=== PATIENT | male | born 1995 | race Hispanic/Latino ===

== ENCOUNTER 2018-04-26 14:47 | Inpatient (IN) | payer MEDICAID ==
[2018-04-26 14:48] VITALS: BMI 23.6
[2018-04-26 16:14] LABS: BASO % 0.6 % (0.0-2.0); EOS # 0.8 K/uL (0.0-0.7); EOS % 9.6 % (0.0-4.0); HEMOGLOBIN 14.8 g/dL (12.0-18.0); LYMPH # 2.6 K/uL (1.0-4.3); LYMPH % 32.2 % (20.0-40.0); MEAN CELL VOLUME 92.4 fL (80.0-94.0); MEAN CORPUSCULAR HEMOGLOBIN 31.4 pg (27.0-31.0); MEAN CORPUSCULAR HGB CONC 33.9 g/dL (33.0-37.0); MEAN PLATELET VOLUME 8.1 fL (7.2-11.7); MONO # 0.7 K/uL (0.0-0.8); MONO % 8.5 % (0.0-10.0); NEUT % 49.1 % (50.0-75.0); NRBC % 0.1 % (0.0-2.0); RBC 4.71 Mil/uL (4.40-5.90); RED CELL DISTRIBUTION WIDTH 13.7 % (11.5-14.5); WHITE BLOOD COUNT 8.1 K/uL (4.8-10.8)
--- NOTE | 2018-04-26 16:26 | RAD ---
Date of service: 04/26/2018 PROCEDURE: Right Thumb radiographs. HISTORY: r/o osteomyelitis, fx COMPARISON: None. TECHNIQUE: AP radiograph of the right hand, as well as spot oblique and lateral images of thumb were obtained. FINDINGS: RIGHT THUMB: Normal right thumb, without fracture or focal lesion. Remainder of the right hand (as seen on the AP view) grossly unremarkable. JOINTS: Normal. SOFT TISSUES: Soft tissue swelling. No radiographic manifestations of acute osteomyelitis. Ulcer identified adjacent to the distal tuft. No visulaized radiopaque/visualized foreign body. OTHER FINDINGS: None. IMPRESSION: Soft tissue swelling without acute articular or osseous abnormality.
[2018-04-26 16:29] LABS: ALB/GLOB RATIO 1.4 (1.0-2.1); ALBUMIN 4.3 g/dL (3.5-5.0); ALT/SGPT 16 U/L (21-72); AST/SGOT 19 U/L (17-59); BLOOD UREA NITROGEN 14 mg/dL (9-20); CALCIUM 9.3 mg/dl (8.6-10.4); GFR NON-AFRICAN AMERICAN > 60
[2018-04-26 16:31] LABS: INR 1.2; PROTHROMBIN TIME 13.5 SECONDS (9.7-12.2)
[2018-04-26] MEDS ORDERED: Clindamycin 300 MG in Sodium Chloride 0.9% 50 ML IVPB STA (16:36)
--- NOTE | 2018-04-26 16:48 | C.PDOC ---
History Of Present Illness 22 y/o male with no significant PMH presents to the ED c/o worsening right thumb pain and swelling x 6 days. Pt originally injured thumb by slamming it in a truck door on 04/21. Pt was seen at [facility] on 04/23 for the same complaint, d iagnosed with right thumb cellulitis with abscess, I&D'd at bedside and admitted for IV antibiotics and wound care. Pt left AMA after staying one night, states that he was "seen by too many doctors". He is here today stating that the right thumb redness and swelling is worse, with increased purulent drainage from site of abscess. He has been using betadine soaks at home without relief. Pt took a P ercocet at approx 11am for pain. Denies IV drug use. Denies fevers, chills, wrist pain, weakness, numbness, paresthesias, headache, N/V, abdominal pain, lightheadedness, SOB, chest pain, palpitations. Chief Complaint (Nursing): Finger,Hand,&Wrist History Per: Patient History/Exam Limitations: no limitations Onset/Duration Of Symptoms: Days Past Medical History Reviewed: Historical Data, Nursing Documentation, Vital Signs Vital Signs: Last Vital Signs Temp 98.5 F 04/26/18 14:51 Pulse 73 04/26/18 14:51 Resp 18 04/26/18 14:51 BP 145/76 04/26/18 14:51 Pulse Ox 97 04/26/18 14:51 - Medical History PMH: Denies: HIV, Chronic Kidney Disease Family History: States: Unknown Family Hx - Social History Hx Alcohol Use: Yes (3x /week) Hx Substance Use: No Review Of Systems Except As Marked, All Systems Reviewed And Found Negative. Constitutional: Negative for: Fever, Chills Eyes: Negative for: Vision Change ENT: Negative for: Nose Congestion, Mouth Swelling, Throat Pain, Throat Swelling Cardiovascular: Negative for: Chest Pain, Palpitations, Light Headedness Respiratory: Negative for: Cough, Shortness of Breath Gastrointestinal: Negative for: Nausea, Vomiting, Abdominal Pain, Diarrhea Musculoskeletal: Positive for: Hand Pain (right thumb). Negative for: Neck Pain, Shoulder Pain, Arm Pain, Back Pain, Leg Pain, Foot Pain Skin: Positive for: Other (redness, swelling, draining wound right thumb) Neurological: Negative for: Weakness, Numbness, Altered Mental Status, Headache, Dizziness Physical Exam - Physical Exam Appears: Well, Non-toxic, No Acute Distress Skin: Warm, Dry, Other Head: Atraumatic, Normacephalic Eye(s): bilateral: Normal Inspection, PERRL, EOMI Nose: Normal Oral Mucosa: Moist Throat: Normal Neck: Normal, Normal ROM Lymphatic: Normal Exam Cardiovascular: Rhythm Regular Respiratory: Normal Breath Sounds Back: Normal Inspection, No Decreased ROM Extremity: No Normal ROM (decreased flexion and opposition to right thumb secondary to swelling and pain), Tenderness (entirety of right thumb), Capillary Refill (<2s), No Deformity, Swelling (right thumb, thenar eminence), Other (erythema right thumb, thenar eminence; 1cm open, bleeding, purulent draining incision volar aspect of right thumb) Extremity: Left: Atraumatic, Normal Color And Temperature, Normal ROM, Right: Limited ROM To Joint (thumb) Pulses: Left Radial: Normal, Right Radial: Normal Neurological/Psych: Oriented x3, Normal Speech, Normal Cognition, Normal Cranial Nerves, Normal Motor, Normal Sensation Gait: Steady ED Course And Treatment - Laboratory Results Result Diagrams: 04/26/18 16:05 04/26/18 16:05 O2 Sat by Pulse Oximetry: 97 Medical Decision Making Medical Decision Making: Initial Plan: --CBC, CMP --Blood Cultures --Wound Cultures --PT/PTT --Right hand XR --Call Dr. Luke Pt received tetanus during visit to [facility] CBC: wnl CMP: wnl PT/PTT: wnl Xray: soft tissue swelling; no acute fracture, FB, or signs of osteomyelitis - read by radiologist Spoke with Dr. Luke, who advised to admit the pt to hospitalist service for IV antibiotics and wound care. Instructed to order consult for him. He will send ophthalmology surgical technician to evaluate. Spoke with Dr. Lopez, who accepted the pt on to the hospitalist service for inpatient admission to regular bed. Spoke with Dr. Nice (Metrology Specialist), who saw and evaluated pt in fast track. Advised to give pt IV Clindamycin and regular diet. States she will do I&D of right thumb abscess at bedside. See consult note. Impression: Right thumb cellulitis with abscess Plan: --Admit to inpatient hospitalist service for IV antibiotics and wound care Disposition - Disposition Disposition: HOSPITALIZED Disposition Time: 17:24 Condition: STABLE - Clinical Impression Clinical Impression: Cellulitis, Abscess
[2018-04-26] MEDS ORDERED: Lidocaine/Epi 1% 1:100000 20 ML IJ STA (17:17)
--- NOTE | 2018-04-26 17:51 | CP.PCM.CON ---
History of Present Illness - History of Present Illness History of Present Illness: Hand surgery consult note for Dr. Luke Consulted for refractory right thumb abscess Pt is a 22M with right thumb pain, swelling, and purulent drainage. 6 days ago patient crushed right thumb in a truck door. At the time patient did not notice any skin breakdown or bleeding, and did not clean or dress the thumb but kept working. over three days thumb became more swollen, and he underwent a bedside incision and drainage at [facility] and was admitted for with antibiotics. the next day patient left AMA. Patient soaked finger at home with betadine and water, but swelling and pain in thumb and purulent drainage persisted, so patient came to [facility] ER today. patient denies any numbness, tingling, weakness, fevers, chills, or any other symptoms. Bedside incision and drainage were performed at bedside. PMH: denies PSH: incsino and drainage of right thumb, right inguinal hernia repair ALL: NKDA Social: past cigarette smoker, past drinker, past marijuana user (states he quit all substances 2 weeks ago), denies any IV drug use Review of Systems - Review of Systems All systems: reviewed and no additional remarkable complaints except (as per HPI) Past Patient History - Infectious Disease Hx of Infectious Diseases: None - Tetanus Immunizations Tetanus Immunization: Unknown - Past Medical History & Family History Past Medical History?: Yes Past Family History: Reviewed and not pertinent - Past Social History Smoking Status: Former Smoker Alcohol: Other (quit drinking 04/2018) Drugs: Other (smoking marijuana history quit 04/2018) Home Situation {Lives}: With Family - CARDIAC Hx Cardiac Disorders: No - PULMONARY Hx Respiratory Disorders: No - NEUROLOGICAL Hx Neurological Disorder: No - HEENT Hx HEENT Problems: No - RENAL Hx Chronic Kidney Disease: No - ENDOCRINE/METABOLIC Hx Endocrine Disorders: No - HEMATOLOGICAL/ONCOLOGICAL Hx Human Immunodeficiency Virus (HIV): No - INTEGUMENTARY Hx Dermatological Problems: No - MUSCULOSKELETAL/RHEUMATOLOGICAL Hx Musculoskeletal Disorders: No Hx Falls: No - GASTROINTESTINAL Hx Gastrointestinal Disorders: No - GENITOURINARY/GYNECOLOGICAL Hx Genitourinary Disorders: No - PSYCHIATRIC Hx Substance Use: No - SURGICAL HISTORY Hx Surgeries: Yes Hx Herniorrhaphy: Yes (right inguinal) Other/Comment: incision and drainage of right thumb x2 04/2018 - ANESTHESIA Hx Anesthesia: Yes Hx Anesthesia Reactions: No Meds Allergies/Adverse Reactions: Allergies Allergy/AdvReac Type Severity Reaction Status Date / Time No Known Allergies Allergy Unverified 03/29/18 02:33 - Medications Medications: Current Medications Clindamycin Phosphate 300 mg/ (Sodium Chloride) 52 mls @ 100 mls/hr IVPB Q6H ANNIE; Protocol Saccharomyces Boulardii (Florastor) 250 mg PO BID ANNIE Physical Exam - Constitutional Appears: Well, Non-toxic, No Acute Distress - Head Exam Head Exam: ATRAUMATIC, NORMOCEPHALIC - Eye Exam Eye Exam: Normal appearance. absent: Conjunctival injection, Scleral icterus - ENT Exam ENT Exam: Mucous Membranes Moist, Normal Oropharynx - Respiratory Exam Respiratory Exam: NORMAL BREATHING PATTERN. absent: Accessory Muscle Use, Respiratory Distress - Cardiovascular Exam Cardiovascular Exam: RRR - GI/Abdominal Exam GI & Abdominal Exam: Soft. absent: Distended, Tenderness - Extremities Exam Extremities exam: Positive for: pedal pulses present. Negative for: calf tenderness, pedal edema Additional comments: right distal thumb with swelling, erythema, small incision with expressible purulent drainage, light sensation intact, normal capillary refill, motor function intact - Neurological Exam Neurological exam: Alert, Oriented x3 - Psychiatric Exam Psychiatric exam: Normal Affect, Normal Mood - Skin Skin Exam: Dry, Warm Results - Vital Signs Recent Vital Signs: Last Vital Signs Temp 98.5 F 04/26/18 14:51 Pulse 73 04/26/18 14:51 Resp 18 04/26/18 14:51 BP 145/76 04/26/18 14:51 Pulse Ox 97 04/26/18 17:24 - Labs Result Diagrams: 04/26/18 16:05 04/26/18 16:05 Labs: Laboratory Results - last 24 hr 04/26/18 04/26/18 04/26/18 16:05 16:05 16:05 WBC 8.1 RBC 4.71 Hgb 14.8 Hct 43.5 MCV 92.4 MCH 31.4 H MCHC 33.9 RDW 13.7 Plt Count 278 MPV 8.1 Neut % (Auto) 49.1 L Lymph % (Auto) 32.2 [place] % (Auto) 8.5 Eos % (Auto) 9.6 H Baso % (Auto) 0.6 Neut # (Auto) 4.0 Lymph # (Auto) 2.6 [place] # (Auto) 0.7 Eos # (Auto) 0.8 H Baso # (Auto) 0.0 PT 13.5 H INR 1.2 APTT 36 H Sodium 142 Potassium 4.1 Chloride 103 Carbon Dioxide 26 Anion Gap 17 BUN 14 Creatinine 0.6 L Est GFR ( Amer) > 60 Est GFR (Non-Af Amer) > 60 Random Glucose 114 H Calcium 9.3 Total Bilirubin 0.4 AST 19 ALT 16 L Alkaline Phosphatase 90 Total Protein 7.4 Albumin 4.3 Globulin 3.1 Albumin/Globulin Ratio 1.4 - Imaging and Cardiology hand XR Status: Image reviewed by me Additional comment: no foreign object or fracture apparent Assessment & Plan - Assessment and Plan (Free Text) Assessment: 22M with persistent abscess of right thumb--prior cultures MSSA most sensitive to clindamycin Plan: incision and drainage performed at bedside in the ED with purulent fluid output, packed with iodoform gauze F/U wound culture admit for IV antibiotics--clindamycin until new wound culture results Daily dressing changes PRN pain medication Discussed with Dr. Marly Nice, PGY2 Incision and Drainage - Time Time Performed: 18:15 - Time Out Time Out: Side verified, Site verified, Patient ID confirmed, Sterile procedures obs. - Procedure Procedure-Incision & Drainage: incision and drainage of the right thumb abscess - Consent obtained Consent obtained: Written - Performed by Performed by: Mid-level Provider - Indications Indications: Cutaneous abscess - Contraindications Contraindications: None - Location Location: Right, Finger abscess (thumb), Skin abscess - Dimensions Dimensions Length cm: 1cm Dimensions width cm: 2cm - Anesthetic Technique Anesthetic Technique: Regional block - Anesthetic Anesthetic: Lidocaine 1% w/epi - Procedure Procedure: Usual prep and drape, cm incision (cruciate incision 2cm x 1cm) - Drained Drained: ml pus (1) - Post-procedure Post procedure: Neurovascular status norm - Complications Complications: None - Patient tolerated procedure Patient tolerated procedure: Well
[2018-04-26] MEDS: Saccharomyces Boulardi 250 mg Cap PO SCH (18:35)
--- NOTE | 2018-04-26 19:05 | CP.PCM.HP ---
<Jeane Calderon E - Last Filed: 04/26/18 19:25> History of Present Illness - History of Present Illness History of Present Illness: CC: Right thumb pain HPI ( As per EMR and patient) Patient is a 22 year old male with no past medical history, who was admitted to [facility] (04/23/18) for right thumb Cellulitis post trauma. Patient had an injury to his right thumb approximately a week after he mistakenly slammed his right thumb in a truck door at work. Patient continued working post-injury and use OTC medications, however, he reported to the hospital 5 days post- injury due to worsening swelling and erythema. During initial evaluation at [facility], patient denied laceration, discharge, fever, chills, numbness, tingling. Patient had a bedside incision and drainage with Purulent drainage expressed; Culture was collected/ sent and Wound irrigated with saline and packed with iodaform. Patient was started on antibiotics, however, patient signed out AMA (04/24/18) and refused further care because he believes his medical team did not know what they were doing. Patient returns to [facility] with worsening pain and swelling but denies any drainage, fever and chills. Patient has been able to use his hand. Code Status: Full code Emergency contact: Liliya Schwartz, PMD: Denies PMHx: denies PSHx: Right inguinal hernia FHx: Denies Medications: Denies Allergies: NKDA Social Hx: Lives with family, work as a road oiling truck driver. Admits to tobacco use 2-3 months ago, few cigarettes per day but quit 2 weeks ago, admits too 2-3 drinks per week and denies any illicit drug use Present on Admission - Present on Admission Any Indicators Present on Admission: No Review of Systems - Constitutional Constitutional: absent: Chills, Fever, Headache - EENT Eyes: absent: Blurred Vision, Change in Vision Ears: absent: Dizziness - Cardiovascular Cardiovascular: absent: Chest Pain, Chest Pain at Rest, Chest Pain with Activity, Dyspnea, Palpitations - Respiratory Respiratory: absent: Dyspnea - Gastrointestinal Gastrointestinal: absent: Abdominal Pain, Diarrhea, Nausea, Vomiting - Musculoskeletal Musculoskeletal: absent: Numbness - Integumentary Integumentary: Wounds Additional comments: Right thumb swelling and erythema - Neurological Neurological: absent: Dizziness, Numbness, Headaches - Endocrine Endocrine: absent: Fatigue, Palpitations Past Patient History - Infectious Disease Hx of Infectious Diseases: None - Past Medical History & Family History Past Medical History?: Yes - Past Social History Smoking Status: Never Smoked - CARDIAC Hx Cardiac Disorders: No - PULMONARY Hx Respiratory Disorders: No - NEUROLOGICAL Hx Neurological Disorder: No - HEENT Hx HEENT Problems: No - RENAL Hx Chronic Kidney Disease: No - ENDOCRINE/METABOLIC Hx Endocrine Disorders: No - HEMATOLOGICAL/ONCOLOGICAL Hx Human Immunodeficiency Virus (HIV): No - INTEGUMENTARY Hx Dermatological Problems: No - MUSCULOSKELETAL/RHEUMATOLOGICAL Hx Musculoskeletal Disorders: No Hx Falls: No - GASTROINTESTINAL Hx Gastrointestinal Disorders: No - GENITOURINARY/GYNECOLOGICAL Hx Genitourinary Disorders: No - PSYCHIATRIC Hx Substance Use: No - SURGICAL HISTORY Hx Surgeries: Yes Hx Herniorrhaphy: Yes (right inguinal) - ANESTHESIA Hx Anesthesia: Yes Hx Anesthesia Reactions: No Meds Home Medications: Home Medication List Medication Instructions Recorded Confirmed Type RX: Clindamycin [Cleocin] 300 mg PO Q8 14 Days #42 cap 04/28/18 Rx Allergies/Adverse Reactions: Allergies Allergy/AdvReac Type Severity Reaction Status Date / Time No Known Allergies Allergy Unverified 03/29/18 02:33 Physical Exam - Constitutional Appears: No Acute Distress - Head Exam Head Exam: ATRAUMATIC, NORMAL INSPECTION - Eye Exam Eye Exam: EOMI, Normal appearance - ENT Exam ENT Exam: Mucous Membranes Moist - Respiratory Exam Respiratory Exam: Clear to Auscultation Bilateral, NORMAL BREATHING PATTERN. absent: Prolonged Expiratory Phase, Rhonchi, Wheezes, Respiratory Distress - Cardiovascular Exam Cardiovascular Exam: REGULAR RHYTHM, +S1, +S2 - GI/Abdominal Exam GI & Abdominal Exam: Normal Bowel Sounds, Soft. absent: Distended, Firm, Guarding, Tenderness - Extremities Exam Extremities exam: Positive for: normal inspection. Negative for: calf tenderness, pedal edema Additional comments: Right thumb swelling and erythema (distally) Very mild limited ROM Radial pulse intact - Neurological Exam Neurological exam: Alert, Oriented x3 - Psychiatric Exam Psychiatric exam: Normal Affect - Skin Skin Exam: Normal Color Results - Vital Signs Recent Vital Signs: Last Vital Signs Temp 98.1 F 04/26/18 18:34 Pulse 85 04/26/18 18:34 Resp 16 04/26/18 18:34 BP 148/73 04/26/18 18:34 Pulse Ox 98 04/26/18 18:34 - Labs Result Diagrams: 04/26/18 16:05 04/26/18 16:05 Labs: Laboratory Results - last 24 hr 04/26/18 04/26/18 04/26/18 16:05 16:05 16:05 WBC 8.1 RBC 4.71 Hgb 14.8 Hct 43.5 MCV 92.4 MCH 31.4 H MCHC 33.9 RDW 13.7 Plt Count 278 MPV 8.1 Neut % (Auto) 49.1 L Lymph % (Auto) 32.2 [place] % (Auto) 8.5 Eos % (Auto) 9.6 H Baso % (Auto) 0.6 Neut # (Auto) 4.0 Lymph # (Auto) 2.6 [place] # (Auto) 0.7 Eos # (Auto) 0.8 H Baso # (Auto) 0.0 PT 13.5 H INR 1.2 APTT 36 H Sodium 142 Potassium 4.1 Chloride 103 Carbon Dioxide 26 Anion Gap 17 BUN 14 Creatinine 0.6 L Est GFR ( Amer) > 60 Est GFR (Non-Af Amer) > 60 Random Glucose 114 H Calcium 9.3 Total Bilirubin 0.4 AST 19 ALT 16 L Alkaline Phosphatase 90 Total Protein 7.4 Albumin 4.3 Globulin 3.1 Albumin/Globulin Ratio 1.4 Assessment & Plan (1) Cellulitis of right thumb Assessment and Plan: Hand X-ray (04/23/18): Normal right thumb, without acute fracture or focal lesion. Remainder of the right hand (as seen on the AP view) grossly unremarkable Hand X-ray (04/26/18): Normal right thumb, without fracture or focal lesion. Remainder of the right hand (as seen on the AP view) grossly unremarkable. Soft tissue swelling. No radiographic manifestations of acute osteomyelitis. Ulcer identified adjacent to the distal tuft. No visulaized radiopaque/visualized foreign body. Consultation: Hand surgeon, Dr. Luke---> Help appreciated * Management as per recommendation * Bedside Incision and drainage (04/26/18) Labs/management: - No leukocytosis - Afebrile - Wound Culture (04/23/18): Staphylococcus aureus, senstive to clindamycin; resistant to penicillin - Clindamycin 300mg IV Q6H - Florastor 250mg PO BID Status: Acute (2) Prophylactic measure Assessment and Plan: DVT: Score of 0 GI: Not indicated All plans and management discussed with Dr. Lopez Status: Acute <Rey Lopez Karen - Last Filed: 05/04/18 07:03> Results - Vital Signs Recent Vital Signs: Last Vital Signs Temp 98.5 F 04/28/18 07:48 Pulse 64 04/28/18 07:48 Resp 20 04/28/18 07:48 BP 115/67 04/28/18 07:48 Pulse Ox 97 04/28/18 07:48 - Labs Result Diagrams: 04/28/18 07:03 04/28/18 07:03 Attending/Attestation - Attestation I have personally seen and examined this patient.: Yes I have fully participated in the care of the patient.: Yes I have reviewed all pertinent clinical information: Yes Notes (Text): 05/04/18 07:02 Medical attending: Please note I am signing this on a later date. I did see the patient and examined the patient with the bio medical technician on the night of admission and I reviewed the above note and agree with the above note Rey Lopez
[2018-04-27] MEDS: Clindamycin 300 MG in Sodium Chloride 0.9% 50 ML IVPB SCH ×4 (00:10→17:48)
[2018-04-27 06:14] VITALS: RESP 20
[2018-04-27 07:52] LABS: BASO # 0.1 K/uL (0.0-0.2); BASO % 0.6 % (0.0-2.0); EOS # 0.6 K/uL (0.0-0.7); HEMOGLOBIN 15.2 g/dL (12.0-18.0); LYMPH # 2.3 K/uL (1.0-4.3); LYMPH % 24.8 % (20.0-40.0); MEAN CELL VOLUME 92.5 fL (80.0-94.0); MEAN CORPUSCULAR HEMOGLOBIN 31.6 pg (27.0-31.0); MEAN CORPUSCULAR HGB CONC 34.1 g/dL (33.0-37.0); MEAN PLATELET VOLUME 7.8 fL (7.2-11.7); MONO # 0.9 K/uL (0.0-0.8); MONO % 9.5 % (0.0-10.0); NEUT # 5.6 K/uL (1.8-7.0); NEUT % 59.1 % (50.0-75.0); RBC 4.81 Mil/uL (4.40-5.90); RED CELL DISTRIBUTION WIDTH 13.5 % (11.5-14.5); WHITE BLOOD COUNT 9.4 K/uL (4.8-10.8)
[2018-04-27 08:34] LABS: ALB/GLOB RATIO 1.4 (1.0-2.1); ALBUMIN 4.4 g/dL (3.5-5.0); ALT/SGPT 18 U/L (21-72); AST/SGOT 26 U/L (17-59); BLOOD UREA NITROGEN 16 mg/dL (9-20); CALCIUM 9.4 mg/dl (8.6-10.4); GFR NON-AFRICAN AMERICAN > 60
[2018-04-27] MEDS: Saccharomyces Boulardi 250 mg Cap PO SCH ×2 (09:58→17:49)
--- NOTE | 2018-04-27 12:31 | CP.PCM.PN ---
Subjective - Date & Time of Evaluation Date of Evaluation: 04/27/18 Time of Evaluation: 06:40 - Subjective Subjective: 22 y/o male with right thumb persistent abscess. Patient still has swelling and pain in the right thumb. Patient denies any fever, chills or any other symptoms. Wound dressing was changed this morning. Objective - Vital Signs/Intake and Output Vital Signs (last 24 hours): Temp Pulse Resp BP Pulse Ox 97.5 F L 58 L 20 117/72 99 04/27/18 08:24 04/27/18 08:24 04/27/18 08:24 04/27/18 08:24 04/27/18 08:24 Intake and Output: 04/27/18 04/27/18 06:59 18:59 Intake Total 300 Balance 300 - Medications Medications: Current Medications Acetaminophen (Tylenol 325mg Tab) 650 mg PO Q6H PRN PRN Reason: Pain, moderate (4-7) Clindamycin Phosphate 300 mg/ (Sodium Chloride) 52 mls @ 100 mls/hr IVPB Q6H [facility]; Protocol Last Admin: 04/27/18 05:48 Dose: 100 mls/hr Ketorolac Tromethamine (Toradol) 30 mg IVP Q6 PRN PRN Reason: Pain, moderate (4-7) Last Admin: 04/27/18 06:56 Dose: 30 mg Saccharomyces Boulardii (Florastor) 250 mg PO BID [facility] Last Admin: 04/27/18 09:58 Dose: 250 mg - Labs Labs: 04/27/18 07:47 04/27/18 07:47 PT 13.5 SECONDS (9.7-12.2) H 04/26/18 16:05 INR 1.2 04/26/18 16:05 APTT 36 SECONDS (21-34) H 04/26/18 16:05 - Constitutional Appears: Well, No Acute Distress - Head Exam Head Exam: ATRAUMATIC, NORMAL INSPECTION, NORMOCEPHALIC - Eye Exam Eye Exam: Normal appearance - ENT Exam ENT Exam: Mucous Membranes Moist, Normal Exam - Neck Exam Neck Exam: Normal Inspection - Respiratory Exam Respiratory Exam: NORMAL BREATHING PATTERN. absent: Accessory Muscle Use - Cardiovascular Exam Cardiovascular Exam: REGULAR RHYTHM - GI/Abdominal Exam GI & Abdominal Exam: Soft, Normal Bowel Sounds - Extremities Exam Extremities Exam: Normal Inspection. absent: Pedal Edema - Psychiatric Exam Psychiatric exam: Normal Affect Assessment and Plan - Assessment and Plan (Free Text) Assessment: 22M with persistent abscess of right thumb POD 1 s/p I &D - prior cultures most sensitive to clindamycin Plan: F/U Wound culture ABX may transition to PO for DC Clear for DC for surgical standpoint Follow up at Dr. Luke's office or Surgical Clinic in 1-2 week after DC Bethadine soak q2hr Daily dressing changes: Packing, 4x4 gauze after soak. PRN pain medications D/W with Dr. Luke
--- NOTE | 2018-04-27 13:04 | CP.PCM.PN ---
<Magnus Cordoba - Last Filed: 04/27/18 17:21> Subjective - Date & Time of Evaluation Date of Evaluation: 04/27/18 Time of Evaluation: 09:30 - Subjective Subjective: Progress Note for Hospitalist Service Patient seen and examined at bedside. He states he has some intermittent throbbing pain in his right thumb. He is able to move his thumb and make a fist without much difficulty. He denies worsening of swelling, pain, redness or discharge from site. He denies fevers, chills, shortness of breath, chest pain, abdominal pain, nausea, vomiting, diarrhea, constipation, leg pain or swelling. Patient's girlfriend Liliya present at bedside. Objective - Vital Signs/Intake and Output Vital Signs (last 24 hours): Temp Pulse Resp BP Pulse Ox 97.5 F L 58 L 20 117/72 99 04/27/18 08:24 04/27/18 08:24 04/27/18 08:24 04/27/18 08:24 04/27/18 08:24 Intake and Output: 04/27/18 04/27/18 06:59 18:59 Intake Total 300 Balance 300 - Medications Medications: Current Medications Acetaminophen (Tylenol 325mg Tab) 650 mg PO Q6H PRN PRN Reason: Pain, moderate (4-7) Clindamycin Phosphate 300 mg/ (Sodium Chloride) 52 mls @ 100 mls/hr IVPB Q6H [facility]; Protocol Last Admin: 04/27/18 05:48 Dose: 100 mls/hr Ketorolac Tromethamine (Toradol) 30 mg IVP Q6 PRN PRN Reason: Pain, moderate (4-7) Last Admin: 04/27/18 06:56 Dose: 30 mg Saccharomyces Boulardii (Florastor) 250 mg PO BID ANNIE Last Admin: 04/27/18 09:58 Dose: 250 mg - Labs Labs: 04/27/18 07:47 04/27/18 07:47 PT 13.5 SECONDS (9.7-12.2) H 04/26/18 16:05 INR 1.2 04/26/18 16:05 APTT 36 SECONDS (21-34) H 04/26/18 16:05 - Constitutional Appears: Well, Non-toxic, No Acute Distress - Head Exam Head Exam: ATRAUMATIC, NORMOCEPHALIC - Eye Exam Eye Exam: EOMI - ENT Exam ENT Exam: Mucous Membranes Moist - Neck Exam Neck Exam: Full ROM - Respiratory Exam Respiratory Exam: Clear to Ausculation Bilateral. absent: Rhonchi, Wheezes - Cardiovascular Exam Cardiovascular Exam: REGULAR RHYTHM, +S1, +S2. absent: Gallop, Rubs, Murmur - GI/Abdominal Exam GI & Abdominal Exam: Soft, Normal Bowel Sounds. absent: Distended, Tenderness, Organomegaly - Extremities Exam Extremities Exam: Normal Capillary Refill. absent: Calf Tenderness, Pedal Edema Additional comments: Right upper extremity: Right thumb bandaged s/p incision and drainage on 04/26/18, no evidence of swelling, lymphangitis or erythema extending past the covered region. No evidence of purulent drainage or discharge from right thumb. Able to move right thumb without difficulty. Able to make a fist. Good radial pulses. Sensation intact to distal aspect of right thumb. Sensation intact to all other digits on right hand. Tattoo on dorsum of right hand. - Back Exam Back Exam: absent: CVA tenderness (L), CVA tenderness (R) - Neurological Exam Neurological Exam: Alert, Awake, CN II-XII Intact, Oriented x3 - Psychiatric Exam Psychiatric exam: Normal Affect, Normal Mood - Skin Additional comments: Multiple tattoos noted on right hand and left arm. Assessment and Plan - Assessment and Plan (Free Text) Plan: Assessment and Plan Cellulitis of right thumb - Hand Xray: 04/26/18 Normal right thumb, without fracture or focal lesion. Remainder of the right hand (as seen on the AP view) grossly unremarkable. Soft tissue swelling. No radiographic manifestations of acute osteomyelitis. Ulcer identified adjacent to the distal tuft. No visualized radiopaque/visualized foreign body. - Hand Xray from [facility] 04/23/18: Normal right thumb, without acute fracture or focal lesion. Remainder of the right hand (as seen on the AP view) grossly unremarkable - Hand Surgeon, Dr. Luke consulted, help appreciated - Bedside I&D on 04/26/18, packed with iodoform gauze - f/u wound culture from I&D 04/26/18 Preliminary finding: GP cocci - wound cultures from [facility] 04/23/18: Positive for Staph aureus, sensitive to Clindamycin. Blood cultures from 04/23/18 in [facility] preliminary negative - Daily dressing changes as per Surgery - Continue Clindamycin 300mg IV Q6 Day 1 - Continue Florastor 250mg PO BID - Toradol 30mg IVP Q6 PRN for pain - Tylenol 650mg PO Q6 PRN for pain - Tdap received in [facility] on 04/23/18 - WBC not elevated, remains afebrile - Given history of tattoos, f/u Hepatitis and HIV panel Prophylaxis: - SCDs - GI prophylaxis not indicated at this time Case discussed with Dr. Edwin Cordoba, PGY1 <Audrey Pineda V - Last Filed: 04/27/18 21:15> Objective - Vital Signs/Intake and Output Vital Signs (last 24 hours): Temp Pulse Resp BP Pulse Ox 98.2 F 84 20 139/82 97 04/27/18 16:00 04/27/18 16:00 04/27/18 16:00 04/27/18 16:00 04/27/18 16:00 Intake and Output: 04/27/18 04/28/18 18:59 06:59 Intake Total 850 Balance 850 - Medications Medications: Current Medications Acetaminophen (Tylenol 325mg Tab) 650 mg PO Q6H PRN PRN Reason: Pain, moderate (4-7) Clindamycin Phosphate 300 mg/ (Sodium Chloride) 52 mls @ 100 mls/hr IVPB Q6H ANNIE; Protocol Last Admin: 04/27/18 17:48 Dose: 100 mls/hr Ketorolac Tromethamine (Toradol) 30 mg IVP Q6 PRN PRN Reason: Pain, moderate (4-7) Last Admin: 04/27/18 06:56 Dose: 30 mg Saccharomyces Boulardii (Florastor) 250 mg PO BID ANNIE Last Admin: 04/27/18 17:49 Dose: 250 mg - Labs Labs: 04/27/18 07:47 04/27/18 07:47 PT 13.5 SECONDS (9.7-12.2) H 04/26/18 16:05 INR 1.2 04/26/18 16:05 APTT 36 SECONDS (21-34) H 04/26/18 16:05 Attending/Attestation - Attestation I have personally seen and examined this patient.: Yes I have fully participated in the care of the patient.: Yes I have reviewed all pertinent clinical information, including history, physical exam and plan: Yes Notes (Text): Patient seen, examined, and case discussed with medical cash poster. Patient seen at bedside accompanied with his girlfriend, Liliya at bedside who he permits us to speak regarding his medical history in detail. Patient noted he jammed his thumb in the doorway. He reported it was very swollen became worse which was why had went to [facility] initially. Patient had an initial I&D at [place] however he AMA from the ED. Patient shortly came to [facility] for similar complaints. Cellulitis of right thumb Assessment/Plan * Patient is afebrile and no elevated white count. * Hand Xray: 04/26/18 Normal right thumb, without fracture or focal lesion. Remainder of the right hand (as seen on the AP view) grossly unremarkable. Soft tissue swelling. No radiographic manifestations of acute osteomyelitis. Ulcer identified adjacent to the distal tuft. No visualized radiopaque/visualized foreign body. * Hand Xray from [facility] 04/23/18: Normal right thumb, without acute fracture or focal lesion. Remainder of the right hand (as seen on the AP view) grossly unremarkable * Hand Surgeon, Dr. Luke consulted, help appreciated * 2nd Bedside I&D on 04/26/18, packed with iodoform gauze-->f/u wound culture from I&D 04/26/18 Preliminary finding: GP cocci * Blood cultures 04/26/18 no growth for 24 hours X2 * 1st I&D at [facility]--> Positive for Staph aureus, sensitive to Clindamycin. * Blood cultures from 04/23/18 in [facility] no growth X4 days X2 * Daily dressing changes as per Surgery * Continue Clindamycin 300mg IV Q6H Day 1 * Continue Florastor 250mg PO BID * Toradol 30mg IVP Q6 PRN for pain * Tylenol 650mg PO Q6 PRN for pain * Tdap received in [facility] on 04/23/18 Prophylaxis Assessment/Plan - SCDs - GI prophylaxis not indicated at this time Disposition: Awaiting wound culture from i&D to finalized; f/u with surgery when stable from their standpoint; c/w IV abx
[2018-04-27 17:43] LABS: HEPATITIS B SURFACE AG Negative (NEGATIVE)
[2018-04-27 17:49] LABS: HEPATITIS A IGM NEGATIVE (NEGATIVE); HEPATITIS B CORE AB NEGATIVE (NEGATIVE)
[2018-04-27 18:00] LABS: HEPATITIS C ANTIBODY NEGATIVE (NEGATIVE)
[2018-04-28] MEDS: Clindamycin 300 MG in Sodium Chloride 0.9% 50 ML IVPB SCH ×3 (00:14→11:47)
[2018-04-28 07:12] LABS: BASO # 0.1 K/uL (0.0-0.2); BASO % 0.8 % (0.0-2.0); EOS # 0.7 K/uL (0.0-0.7); EOS % 8.3 % (0.0-4.0); LYMPH # 2.5 K/uL (1.0-4.3); LYMPH % 32.2 % (20.0-40.0); MEAN CELL VOLUME 91.9 fL (80.0-94.0); MEAN CORPUSCULAR HEMOGLOBIN 31.4 pg (27.0-31.0); MEAN CORPUSCULAR HGB CONC 34.2 g/dL (33.0-37.0); MEAN PLATELET VOLUME 7.8 fL (7.2-11.7); MONO # 0.6 K/uL (0.0-0.8); MONO % 8.2 % (0.0-10.0); NEUT % 50.5 % (50.0-75.0); RBC 4.77 Mil/uL (4.40-5.90); RED CELL DISTRIBUTION WIDTH 13.3 % (11.5-14.5); WHITE BLOOD COUNT 7.9 K/uL (4.8-10.8)
--- NOTE | 2018-04-28 07:44 | CP.PCM.PN ---
Subjective - Date & Time of Evaluation Date of Evaluation: 04/28/18 Time of Evaluation: 07:44 Objective - Vital Signs/Intake and Output Vital Signs (last 24 hours): Temp Pulse Resp BP Pulse Ox 99.1 F 59 L 20 132/74 99 04/28/18 00:00 04/28/18 00:00 04/28/18 00:00 04/28/18 00:00 04/28/18 00:00 Intake and Output: 04/28/18 04/28/18 06:59 18:59 Intake Total 730 Balance 730 - Medications Medications: Current Medications Acetaminophen (Tylenol 325mg Tab) 650 mg PO Q6H PRN PRN Reason: Pain, moderate (4-7) Clindamycin Phosphate 300 mg/ (Sodium Chloride) 52 mls @ 100 mls/hr IVPB Q6H ANNIE; Protocol Last Admin: 04/28/18 05:46 Dose: 100 mls/hr Ketorolac Tromethamine (Toradol) 30 mg IVP Q6 PRN PRN Reason: Pain, moderate (4-7) Last Admin: 04/28/18 05:52 Dose: 30 mg Saccharomyces Boulardii (Florastor) 250 mg PO BID ANNIE Last Admin: 04/27/18 17:49 Dose: 250 mg - Labs Labs: 04/28/18 07:03 04/27/18 07:47 PT 13.5 SECONDS (9.7-12.2) H 04/26/18 16:05 INR 1.2 04/26/18 16:05 APTT 36 SECONDS (21-34) H 04/26/18 16:05
[2018-04-28 07:49] VITALS: BP 115/67; PULSE 64; TEMP 98.5; O2SAT 97
[2018-04-28 07:57] LABS: ALB/GLOB RATIO 1.2 (1.0-2.1); ALBUMIN 3.8 g/dL (3.5-5.0); ALT/SGPT 18 U/L (21-72); AST/SGOT 22 U/L (17-59); BLOOD UREA NITROGEN 13 mg/dL (9-20); CALCIUM 9.3 mg/dl (8.6-10.4); GFR NON-AFRICAN AMERICAN > 60
--- NOTE | 2018-04-28 08:16 | CP.PCM.PN ---
Subjective - Date & Time of Evaluation Date of Evaluation: 04/28/18 Time of Evaluation: 06:30 - Subjective Subjective: hand surgery progress note for. Dr. Luke Pt seen and examined at bedside this AM. No adverse events. Patient states finger still hurts but that it is improving. Dressing changes performed with minimal tenderness. Patient states that girlfriend can assist with dressings at home. Objective - Vital Signs/Intake and Output Vital Signs (last 24 hours): Temp Pulse Resp BP Pulse Ox 98.5 F 64 20 115/67 97 04/28/18 07:48 04/28/18 07:48 04/28/18 07:48 04/28/18 07:48 04/28/18 07:48 Intake and Output: 04/28/18 04/28/18 06:59 18:59 Intake Total 730 Balance 730 - Medications Medications: Current Medications Acetaminophen (Tylenol 325mg Tab) 650 mg PO Q6H PRN PRN Reason: Pain, moderate (4-7) Clindamycin Phosphate 300 mg/ (Sodium Chloride) 52 mls @ 100 mls/hr IVPB Q6H ANNIE; Protocol Last Admin: 04/28/18 05:46 Dose: 100 mls/hr Ketorolac Tromethamine (Toradol) 30 mg IVP Q6 PRN PRN Reason: Pain, moderate (4-7) Last Admin: 04/28/18 05:52 Dose: 30 mg Saccharomyces Boulardii (Florastor) 250 mg PO BID ANNIE Last Admin: 04/27/18 17:49 Dose: 250 mg - Labs Labs: 04/28/18 07:03 04/28/18 07:03 PT 13.5 SECONDS (9.7-12.2) H 04/26/18 16:05 INR 1.2 04/26/18 16:05 APTT 36 SECONDS (21-34) H 04/26/18 16:05 - Constitutional Appears: Well, Non-toxic, No Acute Distress - Head Exam Head Exam: ATRAUMATIC, NORMOCEPHALIC - Eye Exam Eye Exam: Normal appearance. absent: Conjunctival injection, Scleral icterus - ENT Exam ENT Exam: Mucous Membranes Moist, Normal Oropharynx - Respiratory Exam Respiratory Exam: NORMAL BREATHING PATTERN. absent: Accessory Muscle Use, Respiratory Distress - Cardiovascular Exam Cardiovascular Exam: RRR - GI/Abdominal Exam GI & Abdominal Exam: Soft. absent: Distended - Extremities Exam Additional comments: right thumb with dressing dry and intact with minimal serosanguinous saturation, incisions open with minimal serosanguinous drainage, swelling improved, no numbness - Neurological Exam Neurological Exam: Alert, Awake, Oriented x3 - Psychiatric Exam Psychiatric exam: Normal Affect, Normal Mood - Skin Skin Exam: Dry, Normal Color, Warm Assessment and Plan - Assessment and Plan (Free Text) Assessment: 22M with right thumb felon, POD#2 S/P bedside incision and drainage Plan: Pt is clear for D/C from a surgical standpoint with PO antibiotics, PO pain meds (toradol/ibuprofen), and follow up with Dr. Luke or the surgery clinic in 1 week Pt should perform soaks in betadine and sterile water at home 3 times a day, then re-pack the wound lightly with iodoform gauze, wrap in xeroform gauze and kerlex. Return to ER or call Dr. Luke's office for any worsened swelling, inability to move the thumb, or fevers >100.[address] Luke, who agrees with above Lynette Nice, PGY2
[2018-04-28] MEDS: Saccharomyces Boulardi 250 mg Cap PO SCH (09:05)
[2018-04-28] MEDS ORDERED: Pneumococcal 23-Valent Vaccine IM ONE (11:59)
[2018-04-28] MEDS ORDERED: Influenza Vaccine 60 MCG/0.5 ML SYR (3 yr & up) IM ONE (11:59)
--- NOTE | 2018-04-28 15:51 | CP.PCM.DIS ---
Provider - Provider Date of Admission: 04/26/18 17:22 Attending physician: Audrey Pineda DO Consults: Gen Surgery Time Spent in preparation of Discharge (in minutes): 70 Hospital Course - Lab Results Lab Results: Micro Results 04/26/18 18:51 Finger Gram Stain - Final 04/26/18 18:51 Finger Wound Culture - Final Staphylococcus Aureus 04/26/18 15:45 Blood Blood Culture - Preliminary NO GROWTH AFTER 24 HOURS 04/26/18 16:15 Blood Blood Culture - Preliminary NO GROWTH AFTER 24 HOURS Most Recent Lab Values WBC 7.9 K/uL (4.8-10.8) 04/28/18 07:03 RBC 4.77 Mil/uL (4.40-5.90) 04/28/18 07:03 Hgb 15.0 g/dL (12.0-18.0) 04/28/18 07:03 Hct 43.8 % (35.0-51.0) 04/28/18 07:03 MCV 91.9 fL (80.0-94.0) 04/28/18 07:03 MCH 31.4 pg (27.0-31.0) H 04/28/18 07:03 MCHC 34.2 g/dL (33.0-37.0) 04/28/18 07:03 RDW 13.3 % (11.5-14.5) 04/28/18 07:03 Plt Count 289 K/uL (130-400) 04/28/18 07:03 MPV 7.8 fL (7.2-11.7) 04/28/18 07:03 Neut % (Auto) 50.5 % (50.0-75.0) 04/28/18 07:03 Lymph % (Auto) 32.2 % (20.0-40.0) 04/28/18 07:03 Bent % (Auto) 8.2 % (0.0-10.0) 04/28/18 07:03 Eos % (Auto) 8.3 % (0.0-4.0) H 04/28/18 07:03 Baso % (Auto) 0.8 % (0.0-2.0) 04/28/18 07:03 Neut # (Auto) 4.0 K/uL (1.8-7.0) 04/28/18 07:03 Lymph # (Auto) 2.5 K/uL (1.0-4.3) 04/28/18 07:03 Bent # (Auto) 0.6 K/uL (0.0-0.8) 04/28/18 07:03 Eos # (Auto) 0.7 K/uL (0.0-0.7) 04/28/18 07:03 Baso # (Auto) 0.1 K/uL (0.0-0.2) 04/28/18 07:03 PT 13.5 SECONDS (9.7-12.2) H 04/26/18 16:05 INR 1.2 04/26/18 16:05 APTT 36 SECONDS (21-34) H 04/26/18 16:05 Sodium 140 mmol/L (132-148) 04/28/18 07:03 Potassium 4.3 mmol/L (3.6-5.2) 04/28/18 07:03 Chloride 102 mmol/L (98-107) 04/28/18 07:03 Carbon Dioxide 27 mmol/L (22-30) 04/28/18 07:03 Anion Gap 15 (10-20) 04/28/18 07:03 BUN 13 mg/dL (9-20) 04/28/18 07:03 Creatinine 0.7 mg/dL (0.8-1.5) L 04/28/18 07:03 Est GFR ( Amer) > 60 04/28/18 07:03 Est GFR (Non-Af Amer) > 60 04/28/18 07:03 Random Glucose 96 mg/dL (75-110) 04/28/18 07:03 Calcium 9.3 mg/dl (8.6-10.4) 04/28/18 07:03 Phosphorus 4.4 mg/dL (2.5-4.5) 04/28/18 07:03 Magnesium 2.0 mg/dL (1.6-2.3) 04/28/18 07:03 Total Bilirubin 0.3 mg/dL (0.2-1.3) 04/28/18 07:03 AST 22 U/L (17-59) 04/28/18 07:03 ALT 18 U/L (21-72) L 04/28/18 07:03 Alkaline Phosphatase 78 U/L (38-126) 04/28/18 07:03 Total Protein 6.9 g/dL (6.3-8.3) 04/28/18 07:03 Albumin 3.8 g/dL (3.5-5.0) 04/28/18 07:03 Globulin 3.1 gm/dL (2.2-3.9) 04/28/18 07:03 Albumin/Globulin Ratio 1.2 (1.0-2.1) 04/28/18 07:03 Hepatitis A IgM Ab Negative (NEGATIVE) 04/27/18 16:49 Hep Bs Antigen Negative (NEGATIVE) 04/27/18 16:49 Hep B Core IgM Ab Negative (NEGATIVE) 04/27/18 16:49 Hepatitis C Antibody Negative (NEGATIVE) 04/27/18 16:49 HIV 1&2 Antibody Screen Negative (NEGATIVE) 04/27/18 16:49 - Hospital Course Hospital Course: Upon Admission: Patient is a 22 year old male with no PMH, who was admitted to [facility] (04/23/18) for right thumb Cellulitis post trauma. Patient had an injury to his right thumb approximately a week after he mistakenly slammed his right thumb in a truck door at work. Patient continued working post-injury and use OTC medications, however, he reported to the hospital 5 days post- injury due to worsening swelling and erythema. During initial evaluation at [place], patient denied laceration, discharge, fever, chills, numbness, tingling. Patient had a bedside incision and drainage with Purulent drainage expressed; Culture was collected/ sent and Wound irrigated with saline and packed with iodaform. Patient was started on antibiotics, however, patient signed out AMA (04/24/18) and refused further care because he believes his medical team did not know what they were doing. Patient returns to [facility] with worsening pain and swelling but denies any drainage, fever and chills. Patient has been able to use his hand. In the ED, pt was afebrile and had no leukocytosis. He was given clinda 300mg IV q6h. Hospital Course: Pt was continued on Clinda 300mg IV q6h and florastor daily. Hand XR showed soft tissue swelling, no evidence of fracture or osteomyelitis. BCx was negative. Wound Cx grew Staph. aureus sensitive to clinda. Hand Surgery, Dr. Luke was consulted. I&D was performed. They deemed the pt stable for d/c with instructions to continue sterile water and betadine soaks with repacking of wound. Upon Discharge: Pt was deemed stable for discharge. He was instructed to take Clindamycin 300mg by mouth 3 times a day (8am, 2pm, 10pm) for 14 days, home probiotics by mouth twice a day. He was also instructed to follow up in [address] Luke, Hand surgeon and Dr Pina, PMD. Pt understood instructions and agreed. Discharge Exam - Head Exam Head Exam: ATRAUMATIC, NORMOCEPHALIC - Eye Exam Eye Exam: EOMI, Normal appearance, PERRL Pupil Exam: NORMAL ACCOMODATION - ENT Exam ENT Exam: Normal Exam - Neck Exam Neck exam: Normal Inspection - Respiratory Exam Respiratory Exam: Clear to PA & Lateral, NORMAL BREATHING PATTERN. absent: Rales, Rhonchi, Wheezes, Respiratory Distress - Cardiovascular Exam Cardiovascular Exam: REGULAR RHYTHM, +S1, +S2. absent: Gallop, Rubs, Systolic Murmur - GI/Abdominal Exam GI & Abdominal Exam: Normal Bowel Sounds, Soft. absent: Distended, Tenderness - Extremities Exam Additional comments: R thumb with dressing clean dry intact, minimal edema and erythema - Neurological Exam Neurological exam: Alert, Oriented x3 - Psychiatric Exam Psychiatric exam: Normal Affect, Normal Mood Discharge Plan - Discharge Medications Prescriptions: Clindamycin [Cleocin] 300 mg PO Q8 14 Days #42 cap - Follow Up Plan Condition: STABLE Disposition: HOME/ ROUTINE Instructions: Clindamycin (Systemic), Cellulitis (DC), Cellulitis (GEN), Abscess (GEN) Additional Instructions: Discharge to home: Please take the following medication as instructed Clindamycin 300mg by mouth 3 times a day (8am, 2pm, 10pm) for 14 days Take home probiotics by mouth twice a day Take a probiotic yogurt if probiotic pill is unavailable follow up in [address] Luke Hand surgeon in office call [phone] Pina PMD in [address] [facility] office call [phone] Take care and be well Carmelita Knight DO Referrals: [facility] at [facility] [Outside] Juanjo Pina DO [Doctor Osteopathy] - Jesse Luke MD [Staff Provider] -
== END 2018-04-28 13:45 | disposition home or self-care (01) | DRG 383 ==
LOC: C.ER 14:47 → C.3T 17:22 → C.9E 17:45 → C.3T 18:12
PROVIDERS: ADMIT Hospitalist; ATTEND Hospitalist
PROC: 0H9FXZX Drainage of Right Hand Skin, External Approach, Diagnostic (ICD-10-PCS; principal; 2018-04-26)
DX: L03.011 Cellulitis of right finger (principal); B95.61 Methicillin susceptible Staphylococcus aureus infection as the cause of diseases classified elsewhere; Z16.11 Resistance to penicillins; F12.90 Cannabis use, unspecified, uncomplicated; Z87.891 Personal history of nicotine dependence; V48.4XXD Person boarding or alighting a car injured in noncollision transport accident, subsequent encounter